=== PATIENT | female | born 2000 | race Caucasian/White ===

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

== ENCOUNTER 2021-02-10 14:55 | Outpatient (REF) | payer BC, SELFPAY ==
[2021-02-12 01:26] LABS: COVID-19 RT-PCR UVMMC Result Negative (Negative)
== END 2021-02-10 14:56 | disposition home or self-care (01) ==
LOC: NCHCN 14:55
PROVIDERS: PCP Family Medicine; Visit Provider Physician Assistant Medical
DX: R05 Cough (principal); J02.9 Acute pharyngitis, unspecified; Z20.822 Contact with and (suspected) exposure to COVID-19
CPT/HCPCS: U0003; 87070

== ENCOUNTER 2021-02-14 03:46 | Outpatient (CLI) | payer BC, SELFPAY ==
[2021-02-14 09:47] LABS: FREE T4 1.51 ng/dL (0.76-1.46); TSH 3.02 uIU/mL (0.36-3.74)
== END 2021-02-14 03:47 | disposition home or self-care (01) ==
LOC: LBO 03:46
PROVIDERS: PCP Family Medicine; Visit Provider Pediatrics
DX: E04.1 Nontoxic single thyroid nodule (principal)
CPT/HCPCS: 36415; 84439; 84443